=== PATIENT | male | born 1985 | race Caucasian/White ===

== ENCOUNTER 2016-07-15 19:14 | Emergency (ER) | payer OTHER ==
[~2016-07-15] VITALS: Ht 185.4 cm; Wt 82.5 kg
[2016-07-15 23:14] VITALS: BP 124/80
== END 2016-07-15 23:27 | disposition home or self-care (01) ==
LOC: EMS 19:21
DX: T16.2XXA Foreign body in left ear, initial encounter (principal); X58.XXXA Exposure to other specified factors, initial encounter; Y93.89 Activity, other specified; Y92.89 Other specified places as the place of occurrence of the external cause; Y99.8 Other external cause status
CPT/HCPCS: 99283